=== PATIENT | male | born 1970 | race Caucasian/White ===

== ENCOUNTER 2020-07-24 09:29 | Emergency (ER) | payer MEDICAID ==
[~2020-07-24] VITALS: Ht 180.3 cm; Wt 68.2 kg
[~2020-07-24 09:29] MED LIST: IBUP-1984 PO; NO HOME MEDS
[2020-07-24 10:58] VITALS: BP 126/89
== END 2020-07-24 11:01 | disposition home or self-care (01) ==
LOC: ER 09:29
DX: S00.461A Insect bite (nonvenomous) of right ear, initial encounter (principal); H61.21 Impacted cerumen, right ear; H92.01 Otalgia, right ear; J45.909 Unspecified asthma, uncomplicated; G89.29 Other chronic pain; Z88.5 Allergy status to narcotic agent; Z79.899 Other long term (current) drug therapy; Z98.890 Other specified postprocedural states; X58.XXXA Exposure to other specified factors, initial encounter; Y93.89 Activity, other specified; Y92.89 Other specified places as the place of occurrence of the external cause; Y99.8 Other external cause status
CPT/HCPCS: 99281

== ENCOUNTER 2021-03-26 12:34 | Emergency (ER) | payer MEDICAID ==
[~2021-03-26] VITALS: Ht 180.3 cm; Wt 65.9 kg
[2021-03-26 12:54] VITALS: BP 118/90
[2021-03-26] MEDS ORDERED: ALBU6.7H9 INH (13:09)
== END 2021-03-26 13:28 | disposition home or self-care (01) ==
LOC: ER 12:34
DX: U07.1 COVID-19 (principal); J02.9 Acute pharyngitis, unspecified; R51.9 Headache, unspecified; J45.909 Unspecified asthma, uncomplicated; G89.29 Other chronic pain; Z98.890 Other specified postprocedural states; Z79.899 Other long term (current) drug therapy
CPT/HCPCS: 36415; 99283; U0003; U0005

== ENCOUNTER 2021-10-03 07:54 | Emergency (ER) | payer MEDICAID ==
[~2021-10-03] VITALS: Ht 180.3 cm; Wt 65.9 kg
[~2021-10-03 07:54] MED LIST changes: +ALBU6.7H9 INH
[2021-10-03 08:42] LABS: BASOPHILS % (AUTO) 0.7 % (0-1); EOSINOPHILS # (AUTO) 0.2 X10'3 (0-0.9); EOSINOPHILS % (AUTO) 2.2 % (0-6); HEMATOCRIT 47.3 % (42.0-52.0); HEMOGLOBIN 16.2 g/dl (14.0-17.9); LYMPHOCYTES % (AUTO) 28.7 % (21-51); MEAN CORPUSCULAR HEMOGLOBIN 32.3 PG (27.0-31.0); MEAN CORPUSCULAR HGB CONC 34.2 g/dL (33.0-36.5); MEAN CORPUSCULAR VOLUME 94.3 FL (78-98); MEAN PLATELET VOLUME 9.2 FL (7.4-10.4); MONOCYTES # (AUTO) 0.8 X10'3 (0-0.9); MONOCYTES % (AUTO) 10.8 % (2-12); NEUTROPHILS % (AUTO) 57.6 % (42-75); PLATELET COUNT 189 X10'3 (140-440); RED BLOOD COUNT 5.01 X10'6 (4.70-6.10); RED CELL DISTRIBUTION WIDTH 13.2 % (11.5-14.5)
[2021-10-03 08:44] LABS: CLARITY,URINE SLIGHTLY CLOUDY (Clear); COLOR,URINE YELLOW (Yellow); GLUCOSE, URINE NEGATIVE (Neg); KETONES,URINE NEGATIVE (Neg); LEUKOCYTE ESTERASE ,URINE NEGATIVE (Neg); NITRITES, URINE NEGATIVE (Neg); OCCULT BLOOD,URINE NEGATIVE (Neg); PH,URINE 8.5 (4.8-8.0); PROTEIN,URINE NEGATIVE (Neg)
[2021-10-03 08:48] LABS: UA COLLECTION TYPE CLN CATCH MIDSTREAM
[2021-10-03 08:51] LABS: AMORPHOUS PHOSPHATES 4+
[2021-10-03 08:52] LABS: WBC,URINE 0-4 /HPF (0-4)
[2021-10-03 08:53] LABS: BACTERIA,URINE FEW /HPF (Neg); SQUAMOUS EPITHELIAL CELL,UR FEW /LPF (FEW)
[2021-10-03 09:08] LABS: ALANINE AMINOTRANSFERASE 15 U/L (12-78); ALBUMIN/GLOBULIN RATIO 1.3 (1.1-1.5); ALKALINE PHOSPHATASE 55 IU/L (46-116); ANION GAP 5 (8-16); ASPARTATE AMINO TRANSFERASE 17 U/L (10-37); BILIRUBIN,TOTAL 0.5 MG/DL (0.1-1.0); BLOOD UREA NITROGEN 13 MG/DL (7-18); BUN/CREATININE RATIO 15.3 (5.4-32.0); CHLORIDE 106 MMOL/L (99-107); CREATININE 0.85 MG/DL (0.60-1.10); GLUCOSE 87 MG/DL (70-104); LIPASE 92 U/L (73-393); POTASSIUM 4.8 MMOL/L (3.5-5.1); SODIUM 140 MMOL/L (135-145); TOTAL CARBON DIOXIDE 29.2 MMOL/L (24-32); eGFR > 90 ML/MIN
[2021-10-03 11:19] VITALS: BP 140/60
== END 2021-10-03 11:20 | disposition home or self-care (01) ==
LOC: ER 07:54
DX: R10.11 Right upper quadrant pain (principal); D17.9 Benign lipomatous neoplasm, unspecified; J45.909 Unspecified asthma, uncomplicated; G89.29 Other chronic pain; M54.9 Dorsalgia, unspecified; Z79.899 Other long term (current) drug therapy
CPT/HCPCS: 36415; 80053; 81001; 83690; 85025; 99283; 99284